=== PATIENT | male | born 1965 | race Caucasian/White ===

== ENCOUNTER 2017-06-20 11:46 | Emergency (ER) | payer MEDICAID ==
[~2017-06-20] VITALS: Ht 162.6 cm; Wt 68.2 kg
[~2017-06-20 11:46] MED LIST: LEVE500T53 PO; LISI2.5T2 PO; NICO21T TD; OXYC-530 PO; SIMV-259 PO
[2017-06-20 12:53] LABS: BASOPHILS # (AUTO) 0.05 K/uL (0.00-0.20); BASOPHILS % (AUTO) 0.7 % (0.0-2.0); EOSINOPHILS # (AUTO) 0.34 K/uL (0.00-0.70); EOSINOPHILS % (AUTO) 4.19 % (1.0-6.0); HEMATOCRIT 42.4 % (41-53); LYMPHOCYTES # (AUTO) 1.9 K/uL (1.0-4.8); LYMPHOCYTES % (AUTO) 22.9 % (22.0-44.0); MEAN CORPUSCULAR HEMOGLOBIN 28.8 pg (26.0-34.0); MEAN CORPUSCULAR VOLUME 87 fL (80-100); MONOCYTES # (AUTO) 0.6 K/uL (0.1-1.0); MONOCYTES % (AUTO) 7.6 % (2.0-9.0); NEUTROPHILS # (AUTO) 5.2 K/uL (1.8-7.7); NEUTROPHILS % (AUTO) 64.6 % (40.0-70.0); PLATELET COUNT (AUTO) 276 K/uL (150-450); RED BLOOD CELL COUNT(AUTO) 4.85 MIL/uL (4.50-5.90); RED CELL DISTRIBUTION WIDTH 14.6 % (11.5-14.5); WHITE BLOOD COUNT (AUTO) 8.1 K/uL (4.5-11.0)
[2017-06-20 13:06] LABS: PROTHROMBIN TIME 10.8 SEC (9.4-11.6)
[2017-06-20 13:09] LABS: ANION GAP 7 mmol/L (8-16); CALCIUM, TOTAL 8.9 mg/dL (8.8-10.5); CARBON DIOXIDE 28 mmol/L (22-29); CHLORIDE 106 mmol/L (98-107); CREATININE 0.81 mg/dL (0.60-1.30); GLOMERULAR FILTR. RATE CALC > 60 mL/min (>60); POTASSIUM 3.7 mmol/L (3.5-5.1); SODIUM SERUM 141 mmol/L (136-145); UREA NITROGEN, BLOOD 15 mg/dL (7-18)
[2017-06-20 13:14] LABS: ALANINE AMINOTRANSFERASE 40 U/L (12-78); ALBUMIN 3.7 g/dL (3.4-5.0); ASPARTATE AMINOTRANSFERASE 17 U/L (15-37); BILIRUBIN,TOTAL 0.5 mg/dL (0.1-1.0); TOTAL PROTEIN, SERUM 7.2 g/dL (6.4-8.2)
[2017-06-20 14:21] LABS: ERYTHROCYTE SEDIMENTATION RATE 6 MM/HR (0-15)
[2017-06-20 14:27] VITALS: BP 134/83
== END 2017-06-20 14:45 | disposition home or self-care (01) ==
LOC: EMS 11:48
DX: G96.19 Other disorders of meninges, not elsewhere classified (principal); J45.909 Unspecified asthma, uncomplicated; F17.210 Nicotine dependence, cigarettes, uncomplicated
CPT/HCPCS: 70460; 85651; 86140; 87040; 99285

== ENCOUNTER 2018-07-01 17:29 | Emergency (ER) | payer MEDICAID ==
[~2018-07-01] VITALS: Ht 165.1 cm; Wt 63.6 kg
[2018-07-01 23:05] VITALS: BP 138/79
== END 2018-07-01 23:22 | disposition home or self-care (01) ==
LOC: EMS 17:30
DX: R51 Headache (principal); F17.210 Nicotine dependence, cigarettes, uncomplicated; J45.909 Unspecified asthma, uncomplicated; I10 Essential (primary) hypertension; Z79.899 Other long term (current) drug therapy
CPT/HCPCS: 70450

== ENCOUNTER 2018-11-25 19:15 | Emergency (ER) | payer SELFPAY ==
[~2018-11-25] VITALS: Ht 165.1 cm; Wt 68.2 kg
[2018-11-25 19:41] VITALS: BP 149/85
[2018-11-25] MEDS ORDERED: GUAI1TAB PO (19:45)
== END 2018-11-25 22:06 | disposition home or self-care (01) ==
LOC: EMS 19:16 → EDBD 19:16 → EMS 22:06
DX: S16.1XXA Strain of muscle, fascia and tendon at neck level, initial encounter (principal); M25.512 Pain in left shoulder; I10 Essential (primary) hypertension; J45.909 Unspecified asthma, uncomplicated; F17.210 Nicotine dependence, cigarettes, uncomplicated; Z79.899 Other long term (current) drug therapy; V49.9XXA Car occupant (driver) (passenger) injured in unspecified traffic accident, initial encounter; Y93.89 Activity, other specified; Y92.488 Other paved roadways as the place of occurrence of the external cause; Y99.8 Other external cause status

== ENCOUNTER 2019-01-27 13:31 | Emergency (ER) | payer OTHER ==
[~2019-01-27] VITALS: Ht 167.6 cm; Wt 65.9 kg
[~2019-01-27 13:31] MED LIST changes: +GUAI1TAB PO; -LEVE500T53 PO; -LISI2.5T2 PO; -NICO21T TD; -OXYC-530 PO; -SIMV-259 PO
[2019-01-27] MEDS ORDERED: PERTUSS(ACELL),DIPH,TET VAC/PF 0.5 ML VIAL IM ONE (15:15)
[2019-01-27] MEDS ORDERED: ACETAMINOPHEN 325 MG TABLET PO ONE (15:45)
[2019-01-27 15:51] VITALS: BP 129/78
== END 2019-01-27 16:35 | disposition home or self-care (01) ==
LOC: EMS 13:31
DX: S00.91XA Abrasion of unspecified part of head, initial encounter (principal); J45.909 Unspecified asthma, uncomplicated; I10 Essential (primary) hypertension; F17.210 Nicotine dependence, cigarettes, uncomplicated
CPT/HCPCS: 70450; 90471; 90715